=== PATIENT | female | born 1970 | race Caucasian/White ===

== ENCOUNTER 2016-03-20 17:50 | Emergency (ER) | payer OTHER ==
[2016-03-20] MEDS ORDERED: HYDROCOD/APAP 5/325 PREPACK#6 BTL TAKEHOME ONE (18:28)
--- NOTE | 2016-03-20 18:28 | EDPHY ---
H & P Smoking Status: Never smoked Time Seen by Provider: 03/20/16 18:02 HPI/ROS: CHIEF COMPLAINT: Left ankle pain HISTORY OF PRESENT ILLNESS: 46-year-old female arrives via private vehicle complaining of acute left ankle pain after she slipped on her wood floor at home Shortly prior to arrival. No fall from height. No paresthesia. Intact skin. No proximal or distal pain or injury. PHYSICAL EXAM (Prior to examination, patient consented to physical exam, hands were washed and my usual and customary physical exam procedures followed) 1) GENERAL: Well-developed, well-nourished, alert and oriented. Appears to be in no acute distress. 2) HEAD: Normocephalic 3) HEENT: Pupils equal, round, reactive to light bilaterally. 4) LUNGS: Breathing comfortably. 5) MUSCULOSKELETAL: soft tissue swelling lateral malleolus. Ecchymosis present.. proximal tibia and fibula nontender .5th MT nontender negative Hou test, compartments soft 6) SKIN: intact. Ecchymosis. 7) VASCULAR: DP,PT pulses and cap refill present and brisk DIFFERENTIAL DIAGNOSIS: in no particular order including but not limited to fracture, sprain, compartment syndrome Xray of the left ankle and tibia and fibula interpreted by myself: Spiral fracture of the distal fibula with intra-articular component Procedure: Crutches indications for crutch use discussed with patient. Patient fitted for crutches by ER staff. Observed ambulating with crutches. I think the patient has the capacity to safely use crutches. Usual and customary crutch walking precautions provided Procedure: Splint A long leg stirrup Orthoglass splint was applied by ER health technician. After application of the splint I returned and re-examined the patient. The splint was adequately immobilizing the joint and distal to the splint the patient's circulation and sensation were intact. Patient shows no signs of compartment syndrome. Was given orthopedic precautions. (Ian Cui) Constitutional: Initial Vital Signs Temperature (C) 36.6 C 03/20/16 17:52 Heart Rate 69 03/20/16 17:52 Respiratory Rate 16 03/20/16 17:52 Blood Pressure 120/80 03/20/16 17:52 O2 Sat (%) 96 03/20/16 17:52 O2 Delivery Mode Room Air Allergies/Adverse Reactions: latex [Latex] Allergy (Mild, Verified 04/06/13 12:53) RASH, ITCHY Home Medications: Medication Instructions Recorded ALBUTEROL SULFATE 04/03/10 HYDROmorphone HCL [Dilaudid 2 mg 2 mg PO Q4-6PRN PRN #20 tab 04/06/13 (*)] Hydrocodone/APAP 5/325 [Phelps 1 tab PO Q6 PRN #15 tab 03/20/16 5/325 (RX)] MDM/Departure - MDM Medications Given: Discontinued Medications Acetaminophen/Hydrocodone Bitart (Phelps 5/325mg Prepack#6) 1 btl TAKEHOME EDNOW ONE Stop: 03/20/16 18:29 Last Admin: 03/20/16 18:44 Dose: 1 btl Oxycodone/Acetaminophen (Percocet 5/325) 2 tab PO EDNOW ONE Stop: 03/20/16 18:34 Last Admin: 03/20/16 18:30 Dose: 1 tab Oxycodone/Acetaminophen (Percocet 5/325) 1 tab PO EDNOW ONE Stop: 03/20/16 18:37 Last Admin: 03/20/16 18:30 Dose: 2 tab ED Course/Re-evaluation: The patient was evaluated and managed by the physician retail administrative assistant. I have reviewed this chart and I agree with the findings and plan of care as documented , as indicated by my signature. I am the secondary supervising physician. ( Raquel Dawn) - Depart Disposition: Home, Routine, Self-Care Clinical Impression: Fracture of distal fibula Qualifiers: Encounter type: initial encounter Fracture type: closed Fracture morphology: other fracture Laterality: left Qualifier Code: (S82.832A) Other fracture of upper and lower end of left fibula, initial encounter for closed fracture Condition: Good Instructions: Hydrocodone/Acetaminophen (By mouth), Ankle Fracture (ED), Leg Fracture (ED) Additional Instructions: Return to the ER immediately if you experience discoloration, have worsening pain, numbness, tingling, or any other symptoms that concern you. If you received x-rays in the emergency department today, be advised, that ligamentous , tendon, muscular, and other non-bony injury cannot be fully ruled out. Try to keep your affected extremity elevated above the level of your chest, and keep cold packs on the affected area, for the next 48 hours. Prescriptions: Hydrocodone/APAP 5/325 [Phelps 5/325 (RX)] 1 tab PO Q6 PRN #15 tab PRN Reason: Pain, Severe Referrals: Toño Randall MD [Medical Doctor] - 2-3 days, call for appt.
[2016-03-20] MEDS ORDERED: OXYCODONE/APAP 5/325 TAB PO ONE ×2 (18:33→18:36)
--- NOTE | 2016-03-20 18:41 | DX ---
Left Tibia/Fibula (Lower Leg), 2 Views Clinical Indications: Pain following trauma. The left ankle is reported separately. Findings: There is a fracture of the distal fibula, which is described fully in the report from the [facility] ankle study performed earlier today. No other fracture is seen. No radiopaque foreign body is silke ntified. Impression: Left fibular fracture; see report from the left ankle study.
--- NOTE | 2016-03-20 18:42 | DX ---
Left Ankle Series, 3 Views History: Pain following trauma. Findings: There is a mildly displaced spiral fracture of the distal fibula. There may be a minimal es sentially undisplaced fracture of the medial malleolus. The ankle mortise is not widened. The talar d ome appears normal. Soft tissue swelling is seen laterally. Impression: Spiral fracture of the distal fibula extending to the lateral malleolus. Minimal medial m alleolar fracture is identified.
[2016-03-20 18:58] VITALS: BP 121/76; PULSE 73; RESP 18; TEMP 98.8; O2SAT 93
== END 2016-03-20 18:58 | disposition home or self-care (01) ==
PROC: 2W3RX1Z Immobilization of Left Lower Leg using Splint (ICD-10-PCS; principal; 2016-03-20)
DX: S82.832A Other fracture of upper and lower end of left fibula, initial encounter for closed fracture (principal); Z91.040 Latex allergy status; W18.49XA Other slipping, tripping and stumbling without falling, initial encounter; Y92.009 Unspecified place in unspecified non-institutional (private) residence as the place of occurrence of the external cause

== ENCOUNTER → 2016-06-23 | Outpatient (CLI) | payer OTHER | LOC: FIMAGING 11:03 | PROVIDERS: ATTEND Physician Assistant | DX: Z13.820 Encounter for screening for osteoporosis (principal); M85.80 Other specified disorders of bone density and structure, unspecified site; N95.9 Unspecified menopausal and perimenopausal disorder; Z82.62 Family history of osteoporosis ==

== ENCOUNTER → 2017-01-24 | Outpatient (CLI) | payer OTHER | LOC: FIMAGING 14:56 | PROVIDERS: ATTEND Orthopaedic Surgery Foot and Ankle Surgery | DX: S82.452 Displaced comminuted fracture of shaft of left fibula (principal); M25.372 Other instability, left ankle; W19.XXXD Unspecified fall, subsequent encounter ==

== ENCOUNTER → 2017-09-11 | Outpatient (CLI) | payer OTHER | LOC: BMCIMAGING 09:34 | PROVIDERS: ATTEND Internal Medicine Endocrinology, Diabetes & Metabolism | DX: E04.2 Nontoxic multinodular goiter (principal) | CPT/HCPCS: 76536-PO ==